=== PATIENT | male | born 1990 | race Caucasian/White ===

== ENCOUNTER → 2019-12-15 | Outpatient (CLI) | payer OTHER | END | disposition home or self-care (01) | LOC: LABWHC1 16:14 | PROVIDERS: ATTEND Emergency Medicine | DX: Z20.828 Contact with and (suspected) exposure to other viral communicable diseases (principal) | CPT/HCPCS: U0003; C9803 ==

== ENCOUNTER 2020-09-28 09:09 | Day surgery (SDC) | payer BC, OTHER ==
[2020-09-27 08:40] VITALS: BMI 35.2
[~2020-09-28 09:09] MED LIST: LACTATED RINGERS 1,000 ML IV SCH
[2020-09-28 09:32] VITALS: TEMP 98.2
[2020-09-28] MEDS ORDERED: MIDAZOLAM 2 MG/2 ML VIAL ONE (10:28)
[2020-09-28] MEDS ORDERED: fentaNYL (PF) 50 MCG/ML 2 ML AMP ONE (10:28)
[2020-09-28] MEDS ORDERED: PROPOFOL 10 MG/ML 20 ML VIAL IV ONE (10:28)
[2020-09-28] MEDS ORDERED: LIDOCAINE 1% INJ 10MG/ML (20 ML MDV) ONE (10:28)
--- NOTE | 2020-09-28 10:48 | P.PCN ---
Date of Procedure: 09/28/20 Description of Procedure: BRIEF HISTORY: 30-year-old male presenting for outpatient esophagogastroduodenoscopy for evaluation of GERD. The patient reports a long-standing history of esophageal gastric reflux with complaints of epigastric burning and heartburn. Previously on Zantac he had switched to omeprazole therapy. Symptoms well controlled on this medication. PROCEDURE PERFORMED: Esophagogastroduodenoscopy with biopsy. PREOPERATIVE DIAGNOSIS: GERD, heartburn. ESTIMATED BLOOD LOSS: Minimal. IV sedation per anesthesia. PROCEDURE: After informed consent was obtained, the patient was brought into the endoscopy unit. IV sedation was administered by Anesthesia under continuous monitoring. Initially the Olympus GIF-190 video endoscope was inserted into the mouth. Esophagus intubated without any difficulty. It was gradually advanced into the stomach and duodenum and carefully examined. The bulb and the second part of the duodenum appeared normal, with biopsies taken. The scope at this time was withdrawn to the stomach, adequately insufflated with air, and upon careful examination, mucosa of the antrum, body, cardia and the fundus appeared normal, except for some mild patchy erythema in the antrum and body suggestive of mild gastritis with biopsies of antrum and body taken. The scope was then withdrawn into the esophagus. The GE junction was located at 41 cm from the incisors. The esophagus appeared normal, with lower esophageal biopsies taken. There were no erosions or ulcerations seen and the patient tolerated the procedure well. IMPRESSION: 1. Mild gastritis. 2. Biopsies of the duodenum, antrum body and lower esophagus . RECOMMENDATIONS: The findings of this examination were discussed with the patient and his family. Okay to resume diet. Okay to resume medications. Await pathology from biopsies. Continue current medical management.
[2020-09-28 10:56] VITALS: RESP 16
[2020-09-28 11:20] VITALS: BP 129/77; PULSE 64
== END 2020-09-28 11:38 | disposition home or self-care (01) ==
LOC: ORWHC2ENDO 09:09
PROVIDERS: ATTEND Internal Medicine
DX: K29.70 Gastritis, unspecified, without bleeding (principal); K21.9 Gastro-esophageal reflux disease without esophagitis; F17.200 Nicotine dependence, unspecified, uncomplicated; F12.90 Cannabis use, unspecified, uncomplicated; F39 Unspecified mood [affective] disorder
CPT/HCPCS: 43239; 88305; J2250; J2001; J3010; J2704

== ENCOUNTER → 2023-08-08 | Outpatient (CLI) | payer OTHER ==
--- NOTE | 2023-08-08 11:54 | MR ---
EXAMINATION TYPE: MR knee RT wo con DATE OF EXAM: 08/08/2023 COMPARISON: None HISTORY: Right knee pain, medial aspect, x 2-3 weeks, heard popping noise. TECHNIQUE: Multiplanar, multisequence imaging of the right knee is performed without IV contrast. FINDINGS: There is a small joint effusion. There is a large bone contusion involving the medial femoral condyle without discrete fracture. There is a mild strain medial collateral ligament. There is a tear of the posterior horn of the media l meniscus. The lateral meniscus is intact. The cruciate ligaments and lateral collateral ligaments are intact. The articular cartilages are normal and there is no osteochondral defect. The quadriceps and patellar tendons are intact. IMPRESSION: 1. Small tear in the posterior horn of the medial meniscus. 2. Mild strain of the medial collateral ligament. 3. Large bone contusion involving the medial femoral condyle without discrete fracture. 4. Small joint effusion
== END | disposition home or self-care (01) ==
LOC: RADMRIMAIN 07:06
PROVIDERS: ATTEND Orthopaedic Surgery
DX: S83.241A Other tear of medial meniscus, current injury, right knee, initial encounter (principal)